=== PATIENT | male | born 1970 | race African-American/Black ===

== ENCOUNTER 2017-02-21 14:38 | Observation (INO) | payer OTHER ==
[~2017-02-21] VITALS: Ht 193 cm; Wt 83.7 kg
--- NOTE | ~2017-02-21 | EKG ---
PATIENT: SHIRA ISLAS UNIT #: [id number] Ventricular Rate: 81 BPM Atrial Rate: 81 BPM P-R Interval: 170 ms QRS Duration: 92 ms Q-T Interval: 372 ms QTC Calculation(Bezet): 432 ms P [place]: 82 degrees Calculated R [place]: 87 degrees Calculated T [place]: 64 degrees Diagnosis Line: Normal sinus rhythm Diagnosis Line: Normal ECG Diagnosis Line: No previous ECGs available Diagnosis Line: Confirmed by KAYLIN NEGRO MD ([id number]) on Diagnosis Line: 02/21/2017 3:35:14 PM INTERPRETING MD: REJI
--- NOTE | ~2017-02-21 | DS ---
Unit #: [id number] #: [id number] Patient: SHIRA ISLAS [id number] [address] [place], [place] [address] [id number] I MR#: [id number] NAME: SHIRA SILAS ROOM: 54 Age: 47 Sex: M Admission Date: 02/21/2017 : 1970 Discharge Date: 02/22/2017 Attending Physician: Swathi Rodriguez M.D. Primary Care Physician: No Primary Care Physician DISCHARGE SUMMARY ADDENDUM The patient was admitted for further evaluation. Cardiac enzymes are negative and he ruled out for myocardial infarction. Two-dimensional echocardiogram was obtained on 02/22/2017 and revealed an ejection fraction of 50%. There was mild mitral regurgitation and mild tricuspid regurgitation. There was no pericardial effusion. The patient underwent an exercise Cardiolite stress test. He exercised for 9 minutes with no complaints. Nuclear images revealed no ischemia. However, ejection fraction was mildly low at 45%. His blood pressure has been elevated during hospitalization, with systolic readings in the 140s to 160s. He has been started on metoprolol succinate 50 mg p.o. daily and losartan 25 mg p.o. at bedtime. He is instructed to follow up with Dr. Qureshi on 05/25/2017 at 2 p.m. His fasting lipid profile and TSH were normal. He is on a low-dose aspirin for cardiovascular prevention. He is stable and will be discharged home today once seen by Dr. Qureshi. Dictated by... Nicky Sauceda APRN for Nathaniel Fuentes TD: 02/23/2017 10:06 JOB #: [id number] DISCHARGE SUMMARY Page 1 of 1 X X DISCHARGE SUMMARY
--- NOTE | ~2017-02-21 | ST ---
Unit #: [id number] #: [id number] Patient: SHIRA ISLAS [id number] [facility]. [address] [address] [id number] I MR#: [id number] NAME: SHIRA ISLAS : 1970 SEX: M STUDY DATE/TIME: 02/22/2017 UNIT: C5B ROOM: 547 STUDY DESCRIPTION: Stress Test Attending Physician: Swathi Rodriguez M.D. Primary Care Physician: No Primary Care Physician CARDIOLOGY REPORT EXAM EKG Portion of an Exercise Cardiolite Stress Test REASON FOR EXAM Chest pain. DISCUSSION Baseline EKG reveals sinus rhythm with a ventricular rate of 65 beats per minute. Nonspecific ST-T wave changes noted. Patient exercised on the treadmill according to Nikos protocol for 9 minutes achieving a workload of 10.10 METs. Maximal heart rate is 150 beats per minute which represents 86% of the maximal age predicted heart rate. Maximal blood pressure was 168/90 mmHg. There were no complaints of chest pain. There were no sustained arrhythmias noted. Rare premature ventricular complex noted. There were no ST or T wave changes to suggest ischemia. The test was stopped due to protocol completion. IMPRESSION 1. Negative EKG portion of exercise Cardiolite stress test. 2. There were no complaints of chest pain. 3. There were rare premature ventricular complexes noted. 4. There were no ST or T wave changes to suggest ischemia. 5. The test was stopped due to protocol completion. 6. Please correlate with Cardiolite images. Dictated by... Nicky Sauceda APRN for Nathaniel Johnson TD: 02/22/2017 12:52 JOB #: [id number] Unit #: [id number] #: [id number] Patient: SHIRA ISLAS CARDIOLOGY REPORT Page 1 of 1 X CARDIOLOGY REPORT
--- NOTE | ~2017-02-21 | CR72 ---
[facility] A Service of [facility] RADIOLOGY TEXT RESULTS PATIENT: SHIRA ISLAS LOCATION: [facility] 54- : [birth year] UNIT #: [id number] AGE: [address]: Meghan Rodriguez MD SEX: M ORDER DR: [id number] [facility] [address] [facility] [place] [facility]. [place], [place] [address] [id number] I MR#: [id number] Acc #: [id number] NAME: SHIRA ISLAS : 1970 SEX: M STUDY DATE/TIME: 02/21/2017 18:30 UNIT: [facility] ROOM: [facility] STUDY DESCRIPTION: CR Chest Single View Portable Attending Physician: Swathi Rodriguez M.D. Ordering Physician: Curt Devine D.O. Primary Care Physician: Primary Care Physician No MEDICAL IMAGING REPORT This report is preliminary unless electronic signature is present EXAM Portable chest HISTORY Chest pain and shortness of air today. Tingling in left arm. FINDINGS A single AP portable view of the chest shows both lungs to be clear. The heart is normal in size. The mediastinal contour is normal. No significant bone abnormalities are seen. IMPRESSION Normal portable chest. Dictated by... Mikey Almanzar M.D. THIS IS AN ELECTRONICALLY VERIFIED REPORT Mikey Almanzar M.D. at 02/22/2017 6:23 PM IRENE/sneha TD: 02/22/2017 00:38 JOB #: [id number] MEDICAL IMAGING REPORT Page 1 of 1 COPY
--- NOTE | ~2017-02-21 | EKG ---
PATIENT: SHIRA ISLAS UNIT #: [id number] Ventricular Rate: 73 BPM Atrial Rate: 73 BPM P-R Interval: 178 ms QRS Duration: 84 ms Q-T Interval: 398 ms QTC Calculation(Bezet): 438 ms P [place]: 74 degrees Calculated R [place]: 80 degrees Calculated T [place]: 61 degrees Diagnosis Line: Normal sinus rhythm Diagnosis Line: Normal ECG Diagnosis Line: When compared with ECG of 21-FEB-2017 14:41, Diagnosis Line: T wave amplitude has increased in Anterior leads Diagnosis Line: Confirmed by KAYLIN NEGRO MD ([id number]) on Diagnosis Line: 02/22/2017 10:38:23 PM INTERPRETING MD: REJI
--- NOTE | ~2017-02-21 | HP ---
Unit #: [id number] #: [id number] Patient: SHIRA MONROY [id number] [facility]. [place], [place] [address] [id number] I MR#: [id number] NAME: SHIRA MONROY ROOM: 547 Age: 47 Sex: M Admission Date: 02/21/2017 : 1970 Attending Physician: Swathi Rodriguez M.D. Primary Care Physician: No Primary Care Physician HISTORY AND PHYSICAL HISTORY OF PRESENT ILLNESS This is a 47-year-old male with no significant medical conditions, who came to the hospital after he was having his heart racing and palpating and some tingling and aching in his left arm. According to the patient, the day before he had been to a libertarian and had consumed quite a bit of hard liquor and also did some marijuana. He says that he has had this in the past, but it did not last as long as it had. His mother has a blood pressure cuff at home and he took his blood pressure and said it was around 200 on the top number. He called EMS. They arrived and they gave him what appears to be some Nitrostat and aspirin. The patient was transported to the hospital for further evaluation and management. He denies any pain substernally, up in his neck, throat, and bilateral jaws. He did have some increased shortness of breath and he felt like he was a little diaphoretic and a little lightheaded. He denies any recent cough, fever or chills. He has never had a cardiac workup. In the emergency room the patient's blood pressure was 130/92, heart rate 78, respiratory rate 18, afebrile, O2 saturations 98% on room air. His EKG shows normal sinus rhythm with ventricular rate of 81 beats per minute. His chest x-ray did not show anything acute. His initial cardiac enzymes are negative. The patient will be admitted for further evaluation and management. PAST MEDICAL HISTORY 1. Denies hypertension, diabetes mellitus or hyperlipidemia. 2. No stress test or cardiac catheterization in the past. 3. Nicotine abuse. Smokes two packs of cigarettes a day. 4. Alcohol abuse. 5. Marijuana. 6. History of DVT in 2008. PAST SURGICAL HISTORY None. SOCIAL HISTORY The patient lives in his mother's home. He said he helps take care of her. She had a bad accident about 10 years ago. He drinks 3-4 drinks of hard liquor a day. He smokes up to two packs of cigarettes a day. Occasional marijuana. FAMILY HISTORY No known coronary artery disease in his immediate family members. ALLERGIES Unit #: [id number] #: [id number] Patient: SHIRA MONROY No known drug allergies. HOME MEDICATIONS None. REVIEW OF SYSTEMS CONSTITUTIONAL: Denies fever or chills. No recent weight gain or weight loss. HEENT: Denies headache, but had some dizziness with left arm and shoulder pain. Complained of palpitations. PULMONARY: Denies paroxysmal nocturnal dyspnea, orthopnea, but had some shortness of breath with the left arm discomfort. GI: Denies nausea, vomiting, diarrhea, abdominal pain. NEUROLOGICAL: No focal weakness. PHYSICAL EXAMINATION GENERAL: On exam, Mr. Monroy is a 47-year-old male in no acute respiratory distress. He is awake, alert and oriented. VITALS: Blood pressure down to 132/75, heart rate 86, respiratory rate 18, temperature 98.0, O2 saturations 100% on room air. NECK: Trachea midline. No thyromegaly or lymphadenopathy. Normal carotid upstrokes. No jugular venous distension. LUNGS: Slightly diminished, otherwise clear. HEART: S1 and S2. Regular rate and rhythm. No clicks, murmurs or rubs. ABDOMEN: Soft and nontender. Positive bowel sounds present. No hepatosplenomegaly. EXTREMITIES: Pedal pulses are palpable. No pedal edema. DIAGNOSTIC STUDIES IMAGING: Chest x-ray shows normal chest. Lungs are clear. LABORATORY: Glucose 92, BUN 8, creatinine 0.8, EGFR 123.3. Sodium 140, potassium 4.6, chloride 102, CO2 30, calcium 9.7, total protein 9.7, albumin 4.3, bilirubin total 1.1, AST 73, ALT 45, alkaline phosphatase 45. White blood cell count 7.7, hemoglobin 14.0, hematocrit 42.5, platelets 193. Initial cardiac enzymes, CK-MB 1.0 and troponin less than 0.5, CK-MB less than 1.0 and troponin less than 0.05. Urine tox screen positive for marijuana. Urinalysis shows 1+ leukocyte esterase, 2+ urobilinogen, 10-25. CARDIOVASCULAR: EKG shows normal sinus rhythm with ventricular rate 81 beats per minute, nothing acute. ASSESSMENT 1. Palpitations. Heart fluttering. 2. Left arm discomfort. 3. Questionable hypertension. 4. Nicotine abuse. 5. Alcohol abuse. 6. Marijuana use. PLAN 1. The patient was admitted to further evaluate his symptoms of left arm pain, left arm discomfort and his heart palpitations. So far on telemetry there are no arrhythmias noted. His EKG was unremarkable. Cardiac enzymes so far are negative. EKG does not show anything acute. Will order to perform an exercise Cardiolite stress test to further evaluate for ischemic heart disease. 2. Will obtain a two-dimensional echo to evaluate left ventricular Unit #: [id number] #: [id number] Patient: [place] function and valves, especially with his alcohol abuse. 3. Will add fasting lipid profile and TSH and evaluate. 4. On exam there are no signs or symptoms of acute congestive heart failure. 5. Urged the patient to quit smoking and cessation of alcohol use. 6. At this point his blood pressure and heart rate are stable. Will evaluate the patient. Will need blood pressure medication on discharge. 7. Further recommendations pending per Dr. Qureshi. Dictated by Karen Novak A.P.R.N. for Nathaniel Fuentes/toña TD: 02/22/2017 14:00 JOB #: [id number] CC: [facility] HISTORY AND PHYSICAL Page 1 of 1 X Karen Novak APRN HISTORY AND PHYSICAL
--- NOTE | ~2017-02-21 | DS ---
Unit #: [id number] #: [id number] Patient: SHIRA ISLAS [id number] [place], [place] [address] [id number] I MR#: [id number] NAME: SHIRA ISLAS ROOM: 54 Age: 47 Sex: M Admission Date: 02/21/2017 : 1970 Discharge Date: 02/22/2017 Attending Physician: Swathi Rodriguez M.D. Primary Care Physician: No Primary Care Physician DISCHARGE SUMMARY REVISED ADDENDUM The patient was admitted for further evaluation. Cardiac enzymes are negative and he ruled out for myocardial infarction. Two-dimensional echocardiogram was obtained on 02/22/2017 and revealed an ejection fraction of 50%. There was mild mitral regurgitation and mild tricuspid regurgitation. There was no pericardial effusion. The patient underwent an exercise Cardiolite stress test. He exercised for 9 minutes with no complaints. Nuclear images revealed no ischemia. However, ejection fraction was mildly low at 45%. His blood pressure has been elevated during hospitalization, with systolic readings in the 140s to 160s. He has been started on metoprolol tartrate 50 mg p.o. b.i.d. and losartan 25 mg p.o. at bedtime. He is instructed to follow up with Dr. Qureshi on 05/25/2017 at 2 p.m. His fasting lipid profile and TSH were normal. He is on a low-dose aspirin for cardiovascular prevention. He is stable and will be discharged home today once seen by Dr. Qureshi. Dictated by... Nicky Sauceda APRN TRtrina TD: 02/23/2017 10:29 JOB #: [id number] Delete [facility] DISCHARGE SUMMARY Page 1 of 1 X X DISCHARGE SUMMARY
--- NOTE | ~2017-02-21 | TH ---
Unit #: [id number] #: [id number] Patient: SHIRA ISLAS [id number] [address] [address] [id number] I MR#: [id number] NAME: SHIRA ISLAS : 1970 SEX: M STUDY DATE/TIME: 02/22/2017 UNIT: C5B ROOM: 547 STUDY DESCRIPTION: Attending Physician: Swathi Rodriguez M.D. Primary Care Physician: No Primary Care Physician CARDIOLOGY REPORT EXAM Exercise Cardiolite stress test, nuclear portion. PROCEDURE Using technetium 99m labeled Cardiolite, rest and stress SPECT images were obtained. Multiple SPECT images were obtained in various views including horizontal and vertical long axis and short axis views of the left ventricle. Images were obtained by gated SPECT method. The patient was administered 11.7 mCi of Cardiolite at rest. The patient was administered 32.2 mCi of Cardiolite at peak exercise. Total exercise time is 9 minutes. On the stress images, there is normal perfusion noted. The rest images show normal perfusion. Comparing rest and stress images, there is no stress-induced ischemia noted. The left ventricular ejection fraction is calculated to be 45%. There is no focal wall motion abnormality seen. CONCLUSION 1. No stress-induced ischemia noted. 2. The left ventricular ejection fraction is calculated to be 45% which appears to be an under estimation. 3. Normal exercise Cardiolite stress test with mildly lowered left ventricular ejection fraction. Clinical correlation is requested. Dictated by... Nathaniel Johnson TD: 02/22/2017 16:03 JOB #: [id number] CARDIOLOGY REPORT Page 1 of 1 X Sammie Paredes MD <ELECTRONICALLY SIGNED> 03/30/17 1524 CARDIOLOGY REPORT
[~2017-02-21 14:38] MED LIST: ACETAMINOPHEN PO; COUMADIN PO; FOLIC ACID PO; LOVENOX SUBQ; THIAMINE HCL100 MG PO
[2017-02-21 16:05] LABS: BASOPHIL# 0.1 X10e3 (0-0.3); BASOPHIL% 0.9 % (0-2.5); EOSINOPHIL# 0.2 X10e3 (0-0.7); EOSINOPHIL% 2.8 % (0.0-7.0); HEMATOCRIT 42.5 % (38.0-50.0); LYMPHOCYTE# 1.1 X10e3 (1.0-3.5); LYMPHOCYTE% 13.8 % (17.0-45.0); MEAN CELL VOLUME 81.4 FL (83-96); MEAN CORPUSCULAR HEMOGLOBIN 26.8 PG (28-34); MEAN CORPUSCULAR HGB CONC 32.9 g/dL (30-36); MONOCYTE# 0.8 X10e3 (0-1.0); MONOCYTE% 10.3 % (3.0-12.0); NEUTROPHIL# 5.6 X10e3 (1.5-7.1); NEUTROPHIL% 72.2 % (40-75); PLATELET COUNT 193 X10e3 (140-420); RED BLOOD COUNT 5.22 X10e (3.90-5.60); RED CELL DISTRIBUTION WIDTH 16.4 % (11.0-15.5); WHITE BLOOD COUNT 7.7 X10e3 (4.0-10.5)
[2017-02-21 16:16] LABS: DIFF IND NO
[2017-02-21 16:51] LABS: ALBUMIN SERUM 4.3 g/dL (3.5-5.0); BILIRUBIN, DIRECT 0.1 mg/dL (0.0-0.2); BILIRUBIN,TOTAL 1.1 mg/dL (0.2-2.0); CALCIUM SERUM 9.7 mg/dL (8.4-10.2); CREATININE SERUM 0.8 mg/dL (0.6-1.4); GLOM FILT RATE Estimated 123.3 mL/min (>60); POTASSIUM 4.6 mmol/L (3.5-5.1); PROTEIN TOTAL SERUM 7.7 g/dL (6.0-8.3)
[2017-02-21 17:16] LABS: POC - TROPONIN <0.05 ng/mL (<=0.05)
[2017-02-21 17:42] LABS: POC - CKMB <1.0 ng/mL (0.0-7.9); POC - TROPONIN <0.05 ng/mL (<=0.05)
[2017-02-21] MEDS ORDERED: NO MEDICATIONS (21:32)
[2017-02-21 22:32] LABS: %MB 1.3 % (0.0-4.0); MB 1.3 ng/ml
[2017-02-22 02:31] LABS: URINE SOURCE CLEAN CATCH
[2017-02-22 02:40] LABS: URINE APPEARANCE CLEAR; URINE BILIRUBIN NEG (NEG); URINE BLOOD NEG (NEG); URINE COLOR YELLOW; URINE GLUCOSE NEG (NEG); URINE KETONE TRACE (NEG); URINE LEUKOCYTE ESTERASE 1+ (NEG); URINE NITRATE NEG (NEG); URINE PH 7.5 (5-8); URINE PROTEIN NEG (NEG); URINE SPECIFIC GRAVITY 1.023 (1.003-1.035)
[2017-02-22 02:43] LABS: CULTURE INDICATED? YES; URINE BACTERIA AUWI NEG (NEGATIVE); URINE SQUAMOUS EPITHELIAL CELL NONE SEEN /[HPF]
[2017-02-22 02:54] LABS: AMPHETAMINE NEG (NEG); BARBITURATES NEG (NEG); BENZODIAZEPINES NEG (NEG); COCAINE NEG (NEG); MARIJUANA POS (NEG); OPIATES NEG (NEG); TRICYCLIC ANTIDEPRESSANTS NEG (NEG); U METHADONE NEG (NEG)
[2017-02-22 03:48] LABS: %MB 1.3 % (0.0-4.0); MB 1.1 ng/ml
[2017-02-22 11:47] LABS: CHOLESTEROL 190 mg/dL (0-200); HDL CHOLESTEROL 58 mg/dL (29-75); LDL CHOLESTEROL 115 mg/dL (-130); LDL/HDL RATIO 2 RATIO (0-4); TRIGLYCERIDES 85 mg/dL (10-160)
[2017-02-22] MEDS ORDERED: METOPROLOL SUCC50 MG PO (16:18)
[2017-02-22] MEDS ORDERED: COZAAR25 MG PO (16:19)
[2017-02-22] MEDS ORDERED: ASPIRIN81 MG PO (17:19)
[2017-02-23 23:45] LABS: CHLAMYDIA TRACH Not Detected (Not Detected); N GONOR Not Detected (Not Detected)
== END 2017-02-22 18:18 | disposition home or self-care (01) ==
LOC: CED 14:38 → C5B 20:00 → CEDOF 20:00 → CED 20:08 → CEDOF 20:08 → C5B 20:08 → CEDOF 21:06 → C5B 21:06
PROVIDERS: Emergency Medicine; Internal Medicine Cardiovascular Disease; Nurse Practitioner
DX: R00.2 Palpitations (principal); I34.0 Nonrheumatic mitral (valve) insufficiency; I36.1 Nonrheumatic tricuspid (valve) insufficiency; F10.10 Alcohol abuse, uncomplicated; F17.210 Nicotine dependence, cigarettes, uncomplicated; F12.90 Cannabis use, unspecified, uncomplicated; Z86.718 Personal history of other venous thrombosis and embolism
CPT/HCPCS: 36415; 71010; 78452; 80048; 80061; 80076; 80307; 81003; 82550; 82553; 84443; 84484; 85025; 87086; 87491; 87591; 93005; 93017; 93306; 96374; 96375; 99285; C9113; G0378; J0360